=== PATIENT | female | born 1940 ===

== ENCOUNTER 2017-08-27 07:26 | Inpatient (IN) | payer MEDICARE, OTHER ==
[2017-08-27] MEDS ORDERED: Midazolam 2 MG/2 ML VIAL ONE (08:07)
[2017-08-27] MEDS ORDERED: ePHEDrine 50 mg/ml Inj ONE (08:07)
[2017-08-27] MEDS ORDERED: Rocuronium 10 mg/ml (5 ml) ONE (08:08)
[2017-08-27] MEDS ORDERED: Etomidate 20 mg/10ml Inj IV ONE (08:08)
[2017-08-27] MEDS ORDERED: Succinylcholine 200 mg/10 ml Inj IV ONE (08:08)
[2017-08-27] MEDS ORDERED: Lidocaine 4% (Laryng-O-Jet) Kit MM ONE (08:08)
[2017-08-27] MEDS ORDERED: Bupivacaine 0.5% Inj(30mL) ONE (08:13)
[2017-08-27] MEDS ORDERED: Desflurane Inhalation Anesthetic Liq (240 ml) ONE ×2 (08:29→15:00)
[2017-08-27] MEDS ORDERED: Lidocaine 2% w Epi 1:100,000 Inj IJ ONE (08:43)
[2017-08-27] MEDS ORDERED: Lactated Ringer's 1,000 ML IV ONE ×2 (09:00→11:40)
[2017-08-27] MEDS ORDERED: Dexamethasone 4 mg/1 ml ONE (10:06)
[2017-08-27] MEDS ORDERED: HYDROmorphone 0.5 mg/0.5 ml ISec IVP PRN (12:36)
[2017-08-27] MEDS ORDERED: Albuterol HFA 90 mcg/actuation (8 g) ONE (12:42)
[2017-08-27] MEDS ORDERED: Lactated Ringer's 1,000 ML IV SCH (12:45)
[2017-08-27 15:00] VITALS: BMI 21.1
[2017-08-27] MEDS ORDERED: Oxycodone/Acetaminophen 5/325 mg Tab PO PRN (15:35)
--- NOTE | 2017-08-27 15:35 | PCM.SURG1 ---
Surgeon's Initial Post Op Note - Surgeon's Notes Surgeon: ari valdovinos md University Librarian: none Type of Anesthesia: General Endo, Local Pre-Operative Diagnosis: Complete vaginal vault prolapse IV. Mixed urinary incontinence. cystocele IV. 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 Mixed urinary incontinence Operation Performed: Colpoclesis / [place] procedure. Urethropexy. Cystoscopy. Detailed operative procedure. This is a 76 years old female with complete vaginal vault prolapse, associated stage IV cystocele and rectocele. The patient underwent a hysterectomy and colposuspension in the past addressing complete uterine prolapse. The patient responded well following the surgery with adequate vaginal suspension however in the past several months she developed vaginal vault prolapse which eventually became complete vaginal vault prolapse with a complete cystocele and rectocele. The patient reported this vaginal vault prolapse to be debilitating and affecting her quality of life. The patient could not be sitting at the prolapse was painful. The patient was reporting worsening mixed urinary incontinence and often urinary retention. The patient was reporting irritation of the vaginal mucosa and often times small lacerations. The patient is in early stages of dementia and as per the patient' s request and her immediate family including her and children, decision was made to undergo colpoclesis, the obliteration of the vaginal canal and reduction of the vaginal prolapse. A detailed discussion with the patient and her family describing the procedure was completed with the help of a contract sheltered workshop supervisor. The [place] operation was described as an excellent procedure for complete prolapse in elderly women who have had adequate sexual counseling and who under no circumstances expect to have intercourse in the future. It was also explained that, failure or recurrent prolapse after the procedure is extremely rare. In addition, the patient and her family was told that if the procedure removes excessive anterior vaginal wall, however, the urethrovesical angle may be brought down to the posterior fourchette, and some patients will have either stress or overflow incontinence of urine as a result of this anatomical modification. Essentially, this is an obliterative procedure closing off the vaginal canal allowing enough with a vaginal opening for adequate spontaneous urination. The patient and her family understood the description of this procedure and all questions were answered. Following proper consent the patient was taken to the operating room where general anesthesia was obtained without difficulty. She was placed in dorsal lithotomy position. Legs were placed in adjustable Tevin stirrups, careful attention was placed to avoid hyperflexion or hyper rotation of the lower extremities. She was prepped and draped appropriately for vaginal procedure. Johnson catheter was inserted under sterile conditions. Examination under anesthesia revealed complete vaginal vault prolapse with complete cystocele and rectocele, keratinized vaginal mucosa with multiple small lacerations. Vaginal wall dryness. The labia were anchored laterally with interrupted 2-0 synthetic absorbable suture and a [place] self vaginal retractor was utilized to aid in self retracting or vaginal mucosa and the labia. The anterior vaginal wall as well as the vaginal cuff was grasped with a Ospina tenaculum and prolapsed from the vagina. A blue marking pen was used to outline the area of the anterior vaginal mucosa that was to be undermined and removed. A dilute solution of quarter percent Marcaine was utilized to aid in hydrodissection as well as hemostasis in the process of the excision and removal of the vaginal mucosa area and posterior vaginal wall. With a use of a scalpel, the posterior vaginal mucosa was incised transversely at its junction with the vaginal cuff. Utilizing sharp and blunt dissection, The blades of curved Hernandez scissors were inserted underneath the posterior vaginal mucosa and on top of the perirectal fascia, and the vaginal mucosa was freed to the lateral margins of the marked area. The posterior vaginal mucosa was then cut along the prescribed marking lines with curved Hernandez scissors and removed. The vaginal mucosa was labeled and sent to pathology for analysis. A similar transverse incision was made in the anterior vaginal mucosa at its junction with the vaginal apex and vaginal cuff. The blades of curved Hernandez scissors were inserted underneath the anterior vaginal mucosa to dissect laterally and upward toward the urethral meatus until the limits of the marked area are reached. The anterior vaginal mucosa was removed from the underlying pubovesical cervical fascia. The specimen was labeled and sent to pathology. At this time, I progressively approximated the pubovesical cervical fascia anteriorly and the perirectal fascia posteriorly with Lembert inverting sutures; essentially reducing the vaginal vault prolapse while displacing it backwards into the vaginal and pelvic space. In the process of reducing this vaginal prolapse,when this lateral suture was tied, a tunnel was created along each lateral margin for drainage of cervical mucus, thereby preventing the formation of mucocele. Several sutures were placed in a similar manner to complete the tunnel on each side. 0 Vicryl sutures were placed from the pubovesical cervical fascia anteriorly to the perirectal fascia posteriorly over the portio of the vaginal apex and vaginal cuff. After several of these sutures have been placed, we inverted the portio of the vaginal apex vaginal cuff. After several rows of sutures have been completed, the vaginal cuff was totally inverted, and the pubovesical cervical fascia anteriorly and the perirectal fascia posteriorly were plicated. A final row of 0 Vicryl sutures was placed between the remaining vaginal mucosa anteriorly and posteriorly. At this time, a rectal exam was performed to make sure that the rectum was not entered or sutured. Diagnostic cystoscopy was completed at the end of the procedure, a 30 cystoscope was entered, the bladder was distended approximately 300 mL of normal saline, and a survey of the bladder anatomy was completed. Both ureteral orifices appeared normal effluxing urine freely, the bladder mucosa appeared normal and no compromise to the bladder was noted. Johnson catheter was reinserted to remove the next morning. Prior to incision pressure should prophylactic antibiotics, prior to closure sponge lap and needle counts were correct 2. Specimen/Specimens Removed: vaginal mucosa Estimated Blood Loss: EBL {In ML}: 20 Blood Products Given: N/A Drains Used: No Drains Date of Surgery/Procedure: 08/27/17 Time of Surgery/Procedure: 10:00
[2017-08-27] MEDS ORDERED: Pneumococcal 23-Valent Vaccine IM ONE ×2 (16:00→18:15)
[2017-08-27] MEDS ORDERED: ceFAZolin 1 GM in Sodium Chloride 0.9% 100 ML IVPB SCH (17:00)
[2017-08-27] MEDS: ceFAZolin IV 1 gm in Dextrose 1 GM/50 ML BAG IVPB SCH (20:53)
[2017-08-28] MEDS: Lactated Ringer's 1,000 ML IV SCH ×2 (01:30→22:00)
[2017-08-28] MEDS: ceFAZolin IV 1 gm in Dextrose 1 GM/50 ML BAG IVPB SCH ×3 (04:09→21:00)
[2017-08-28 06:31] LABS: BASO % 0.1 % (0.0-2.0); BLOOD UREA NITROGEN 9 mg/dl (7-17); CALCIUM 8.5 mg/dL (8.4-10.2); GFR AFRICAN-AMERICAN > 60; GFR NON-AFRICAN AMERICAN > 60; HEMOGLOBIN 11.1 g/dL (12.0-16.0); LYMPH # 2.1 K/uL (1.0-4.3); LYMPH % 20.2 % (20.0-40.0); MEAN CELL VOLUME 87.7 fl (81.0-99.0); MEAN CORPUSCULAR HEMOGLOBIN 28.7 pg (27.0-31.0); MEAN CORPUSCULAR HGB CONC 32.8 g/dL (33.0-37.0); MEAN PLATELET VOLUME 9.4 fl (7.2-11.7); MONO # 0.5 K/uL (0.0-0.8); MONO % 5.1 % (0.0-10.0); NEUT % 74.6 % (50.0-75.0); NRBC % 0.1 % (0.0-0.0); RBC 3.88 Mil/uL (3.80-5.20); RED CELL DISTRIBUTION WIDTH 13.6 % (11.5-14.5); WHITE BLOOD COUNT 10.7 K/uL (4.8-10.8)
--- NOTE | 2017-08-28 13:33 | CP.PCM.PN ---
Subjective - Date & Time of Evaluation Date of Evaluation: 08/28/17 Time of Evaluation: 13:30 - Subjective Subjective: Patient with at bedside. Translation device used. Patient states she has no pain, but feels week. Patient says she has not been vomiting, but vomited earlier per RN and vomited what appears to be entire portion of soup that she ate during exam. states she gets confused but she is a little worse than normal. Objective - Vital Signs/Intake and Output Vital Signs (last 24 hours): Temp Pulse Resp BP Pulse Ox 97.3 F L 75 20 116/64 95 08/28/17 08:40 08/28/17 08:40 08/28/17 04:00 08/28/17 08:40 08/28/17 08:40 Intake and Output: 08/28/17 08/28/17 06:59 18:59 Intake Total 1000 Output Total 1300 Balance -300 - Medications Medications: Current Medications Lactated Ringer's (Lactated Ringer's) 1,000 mls @ 100 mls/hr IV .Q10H [facility] Last Admin: 08/28/17 01:30 Dose: Not Given Cefazolin Sodium/Dextrose (Ancef Iv 1 Gm Duplex) 1 gm in 50 mls @ 50 mls/hr IVPB Q8H [facility] PRN Reason: Protocol Last Admin: 08/28/17 11:29 Dose: 50 mls/hr Metoclopramide HCl (Reglan) 5 mg PO Q6H [facility] Stop: 08/29/17 07:31 Ondansetron HCl (Zofran Inj) 4 mg IVP Q6 PRN PRN Reason: Nausea/Vomiting Last Admin: 08/28/17 10:34 Dose: 4 mg Oxycodone/Acetaminophen (Percocet 5/325 Mg Tab) 1 tab PO Q4H PRN PRN Reason: Pain, moderate (4-7) Stop: 08/30/17 15:36 Last Admin: 08/27/17 20:55 Dose: 1 tab - Labs Labs: 08/28/17 05:20 08/28/17 05:20 - GI/Abdominal Exam Additional comments: abd soft, mildy tender. vomits soup immediately after eating, but does not complain of nausea prior to vomiting. Assessment and Plan (1) Urinary incontinence Assessment & Plan: POD#1 s/p colpoclesis and utetropexy liquid diet awaiting pt to void hold dilaudid/narcoticsdue to confusion reglan d/w Dr. Rodriguez, agrees with above Status: Acute (2) Uterine prolapse Status: Acute
[2017-08-29] MEDS: ceFAZolin IV 1 gm in Dextrose 1 GM/50 ML BAG IVPB SCH (04:35)
[2017-08-29 07:11] LABS: HEMOGLOBIN 12.3 g/dL (12.0-16.0); MEAN CELL VOLUME 87.6 fl (81.0-99.0); MEAN CORPUSCULAR HEMOGLOBIN 29.2 pg (27.0-31.0); MEAN CORPUSCULAR HGB CONC 33.4 g/dL (33.0-37.0); RBC 4.2 Mil/uL (3.80-5.20); RED CELL DISTRIBUTION WIDTH 13.6 % (11.5-14.5); WHITE BLOOD COUNT 8.5 K/uL (4.8-10.8)
[2017-08-29 07:20] LABS: BLOOD UREA NITROGEN 9 mg/dl (7-17); CALCIUM 8.7 mg/dL (8.4-10.2); GFR AFRICAN-AMERICAN > 60; GFR NON-AFRICAN AMERICAN > 60
[2017-08-29 07:57] VITALS: BP 128/75; PULSE 69; RESP 17; TEMP 98.7; O2SAT 93
[2017-08-29] MEDS ORDERED: Multivitamin With Minerals Tab PO SCH (09:00)
--- NOTE | 2017-08-29 11:51 | CP.PCM.PN ---
Subjective - Date & Time of Evaluation Date of Evaluation: 08/29/17 Time of Evaluation: 11:49 - Subjective Subjective: Patient with at bedside. Denies pain. Denies bleeding, voiding well. No vomiting since last exam. Denies nausea. Objective - Vital Signs/Intake and Output Vital Signs (last 24 hours): Temp Pulse Resp BP Pulse Ox 98.7 F 69 17 128/75 93 L 08/29/17 07:56 08/29/17 07:56 08/29/17 07:56 08/29/17 07:56 08/29/17 07:56 - Medications Medications: Current Medications Acetaminophen (Tylenol 325mg Tab) 650 mg PO Q6 PRN PRN Reason: Pain, Mild (1-3) Last Admin: 08/28/17 17:10 Dose: 650 mg Donepezil HCl (Aricept) 10 mg PO DAILY [facility] Last Admin: 08/29/17 08:16 Dose: 10 mg Lactated Ringer's (Lactated Ringer's) 1,000 mls @ 100 mls/hr IV .Q10H [facility] Last Admin: 08/28/17 22:00 Dose: Not Given Cefazolin Sodium/Dextrose (Ancef Iv 1 Gm Duplex) 1 gm in 50 mls @ 50 mls/hr IVPB Q8H [facility] PRN Reason: Protocol Last Admin: 08/29/17 04:35 Dose: 50 mls/hr Multivitamins/Minerals (Therapeutic-M Tab) 1 tab PO DAILY [facility] Last Admin: 08/29/17 08:16 Dose: 1 tab Ondansetron HCl (Zofran Inj) 4 mg IVP Q6 PRN PRN Reason: Nausea/Vomiting Last Admin: 08/28/17 10:34 Dose: 4 mg - Labs Labs: 08/29/17 06:00 08/29/17 06:00 - Exam Additional comments: no vaginal drainage, abd soft, non tender Assessment and Plan (1) Urinary incontinence Assessment & Plan: POD#2 nausea resolved, tolerating diet, no vomiting voiding d/c home today f/u 2 weeks call for appt return to ER if no urine or nausea returns d/w Dr. Rodriguez, agrees with above Status: Acute (2) Uterine prolapse Status: Acute
--- NOTE | 2017-09-02 19:08 | PCM.OP ---
Operative Report - Operative Report Date of Surgery/Procedure: 08/27/17 Time of Surgery/Procedure: 10:00 Surgeon: Madeleine Brar MD Nib Inspector: None Anesthesia/Sedation: Gen. ET tube Pre-Operative Diagnosis: Complete vaginal vault prolapse. Stage IV cystocele stage IV rectocele. Mixed urinary incontinence Post-Operative Diagnosis: Complete vaginal vault prolapse. Stage IV cystocele stage IV rectocele. Mixed urinary incontinence Indication for Surgery: Worsening complete vaginal vault prolapse symptomatic Operative Findings: Complete vaginal vault prolapse complete cystocele with complete rectocele, vaginal mucosa lacerations due to vaginal dryness Procedure/Operation Description: Colpoclesis [place] procedure. urethrapexy. Diagnostic cystoscopy. Detailed operative procedure. This is a 76 years old female with complete vaginal vault prolapse, associated stage IV cystocele and rectocele. The patient underwent a hysterectomy and colposuspension in the past addressing complete uterine prolapse. The patient responded well following the surgery with adequate vaginal suspension however in the past several months she developed vaginal vault prolapse which eventually became complete vaginal vault prolapse with a complete cystocele and rectocele. The patient reported this vaginal vault prolapse to be debilitating and affecting her quality of life. The patient could not be sitting at the prolapse was painful. The patient was reporting worsening mixed urinary incontinence and often urinary retention. The patient was reporting irritation of the vaginal mucosa and often times small lacerations. The patient is in early stages of dementia and as per the patient's request and her immediate family including her and children, decision was made to undergo colpoclesis, the obliteration of the vaginal canal and reduction of the vaginal prolapse. A detailed discussion with the patient and her family describing the procedure was completed with the help of a actuarial consultant. The [place] operation was described as an excellent procedure for complete prolapse in elderly women who have had adequate sexual counseling and who under no circumstances expect to have intercourse in the future. It was also explained that, failure or recurrent prolapse after the procedure is extremely rare. In addition, the patient and her family was told that if the procedure removes excessive anterior vaginal wall, however, the urethrovesical angle may be brought down to the posterior fourchette, and some patients will have either stress or overflow incontinence of urine as a result of this anatomical modification. Essentially, this is an obliterative procedure closing off the vaginal canal allowing enough with a vaginal opening for adequate spontaneous urination. The patient and her family understood the description of this procedure and all questions were answered. Following proper consent the patient was taken to the operating room where general anesthesia was obtained without difficulty. She was placed in dorsal lithotomy position. Legs were placed in adjustable Tevin stirrups, careful attention was placed to avoid hyperflexion or hyper rotation of the lower extremities. She was prepped and draped appropriately for vaginal procedure. Johnson catheter was inserted under sterile conditions. Examination under anesthesia revealed complete vaginal vault prolapse with complete cystocele and rectocele, keratinized vaginal mucosa with multiple small lacerations. Vaginal wall dryness. The labia were anchored laterally with interrupted 2-0 synthetic absorbable suture and a [place] self vaginal retractor was utilized to aid in self retracting or vaginal mucosa and the labia. The anterior vaginal wall as well as the vaginal cuff was grasped with a [place]sp[place] tenaculum and prolapsed from the vagina. A blue marking pen was used to outline the area of the anterior vaginal mucosa that was to be undermined and removed. A dilute solution of quarter percent Marcaine was utilized to aid in hydrodissection as well as hemostasis in the process of the excision and removal of the vaginal mucosa area and posterior vaginal wall. With a use of a scalpel, the posterior vaginal mucosa was incised transversely at its junction with the vaginal cuff. Utilizing sharp and blunt dissection, The blades of curved Hernandez scissors were inserted underneath the posterior vaginal mucosa and on top of the perirectal fascia, and the vaginal mucosa was freed to the lateral margins of the marked area. The posterior vaginal mucosa was then cut along the prescribed marking lines with curved Hernandez scissors and removed. The vaginal mucosa was labeled and sent to pathology for analysis. A similar transverse incision was made in the anterior vaginal mucosa at its junction with the vaginal apex and vaginal cuff. The blades of curved Hernandez scissors were inserted underneath the anterior vaginal mucosa to dissect laterally and upward toward the urethral meatus until the limits of the marked area are reached. The anterior vaginal mucosa was removed from the underlying pubovesical cervical fascia. The specimen was labeled and sent to pathology. At this time, I progressively approximated the pubovesical cervical fascia anteriorly and the perirectal fascia posteriorly with Lembert inverting sutures; essentially reducing the vaginal vault prolapse while displacing it backwards into the vaginal and pelvic space. In the process of reducing this vaginal prolapse, when this lateral suture was tied, a tunnel was created along each lateral margin for drainage of cervical mucus, thereby preventing the formation of mucocele. Several sutures were placed in a similar manner to complete the tunnel on each side. 0 Vicryl sutures were placed from the pubovesical cervical fascia anteriorly to the perirectal fascia posteriorly over the portio of the vaginal apex and vaginal cuff. After several of these sutures have been placed, we inverted the portio of the vaginal apex vaginal cuff. After several rows of sutures have been completed, the vaginal cuff was totally inverted, and the pubovesical cervical fascia anteriorly and the perirectal fascia posteriorly were plicated. A final row of 0 Vicryl sutures was placed between the remaining vaginal mucosa anteriorly and posteriorly. At this time, a rectal exam was performed to make sure that the rectum was not entered or sutured. Diagnostic cystoscopy was completed at the end of the procedure, a 30 cystoscope was entered, the bladder was distended approximately 300 mL of normal saline, and a survey of the bladder anatomy was completed. Both ureteral orifices appeared normal effluxing urine freely, the bladder mucosa appeared normal and no compromise to the bladder was noted. Johnson catheter was reinserted to remove the next morning. Prior to incision pressure should prophylactic antibiotics, prior to closure sponge lap and needle counts were correct 2. Estimated Blood Loss: 20 Blood Replaced: None Sponge/Instrument Count: Count correct 2 Drains: None Complications: None Specimen: Vaginal mucosa Discharge & Condition: Patient was discharged home postoperative day #3 in stable condition
== END 2017-08-29 16:40 | disposition home or self-care (01) | DRG 748 ==
LOC: H.OPSURG 07:26 → H.MEDSURG1 15:35
PROVIDERS: ADMIT Obstetrics & Gynecology; ATTEND Obstetrics & Gynecology
PROC: 0TJB8ZZ Inspection of Bladder, Via Natural or Artificial Opening Endoscopic (ICD-10-PCS; 2017-08-27)
PROC: 0ULG7ZZ Occlusion of Vagina, Via Natural or Artificial Opening (ICD-10-PCS; principal; 2017-08-27 10:15)
PROC: 0TQD7ZZ Repair Urethra, Via Natural or Artificial Opening (ICD-10-PCS; 2017-08-27 10:15)
DX: N99.3 Prolapse of vaginal vault after hysterectomy (principal); F03.90 Unspecified dementia, unspecified severity, without behavioral disturbance, psychotic disturbance, mood disturbance, and anxiety; N39.46 Mixed incontinence; N81.6 Rectocele